=== PATIENT | male | born 1960 | race Caucasian/White ===

== ENCOUNTER 2020-10-17 15:37 | Emergency (ER) | payer OTHER ==
[~2020-10-17] VITALS: Ht 198.1 cm; Wt 143.2 kg
[~2020-10-17 15:37] MED LIST: COUMADIN 22.5 MG/TAB PO; COUMADIN 5MG5 MG/TAB PO; PERCOCET 325 MG1 TA2 PO; PERCR 7.5 PO; ROXICODONE 55 MG/TAB PO; ZOLOFT 100MG100 MG PO
[2020-10-17 16:13] LABS: BASO # 0.1 (0.0-0.2); BASO % 0.3 % (0.0-2.0); EOS # 0.1 (0.0-0.7); EOS % 0.4 % (0-4.0); GRAN # 14.4 (1.4-6.5); GRAN % 81.7 % (42.2-75.2); HEMATOCRIT 47.9 % (42.0-52.0); HEMOGLOBIN 15.1 g/dl (13.5-18.0); LYMPH % 11.4 % (20.0-51.0); MEAN CELL VOLUME 92 fl (80.0-100.0); MEAN CORPUSCULAR HEMOGLOBIN 29 pg (27.0-31.0); MEAN CORPUSCULAR HGB CONC 32 g/dl (33.0-37.0); MEAN PLATELET VOLUME 8.8 fl (7.4-10.4); MONO % 5.6 % (1.7-9.3); PLATELET COUNT 154 K/mm3 (130-400); RED BLOOD COUNT 5.21 M/mm3 (4.20-5.60); REDCELL DISTRIBUTION WIDTH-CV 13.8 % (11.5-14.5)
[2020-10-17 16:28] LABS: ALANINE AMINOTRANSFERASE 31 U/L (4-49); ALKALINE PHOSPHATASE 70 U/L (50-136); ANION GAP 17 mmol/L (7-16); AST,SGOT 36 U/L (15-37); BLOOD UREA NITROGEN 22 mg/dL (9-20); CARBON DIOXIDE 21 mmol/L (22-30); CHLORIDE 104 mmol/L (98-107); CREATININE, serum 1.92 (0.66-1.25); GLUCOSE 196 mg/dL (74-106); LIPASE 145 U/L (23-300); POTASSIUM 4.2 mmol/L (3.4-5.0); SODIUM 142 mmol/L (137-145); TOTAL PROTEIN 8.6 gm/dL (6.4-8.2)
[2020-10-17 16:34] LABS: TROPONIN-I < 0.012 ng/mL (0.000-0.035)
[2020-10-17 18:13] LABS: INR 1.2 (0.8-3.0); PROTHROMBIN TIME 13.4 SECONDS (9.7-12.8)
[2020-10-17 18:31] LABS: COLLECTION METHOD CLEAN CATCH
[2020-10-17 18:43] LABS: MUCOUS Present /lpf; PH 5 (5-8); SQUAMOUS EPITHELIAL 0-2 /hpf; URINE APPEARANCE Cloudy; URINE BACTERIA Rare /hpf; URINE BILIRUBIN Negative (NEGATIVE); URINE BLOOD 3+ (NEGATIVE); URINE COLOR Amber; URINE GLUCOSE Negative (NEGATIVE); URINE KETONE Negative (NEGATIVE); URINE LEUKOCYTE ESTERASE Negative (NEGATIVE); URINE NITRATE Negative (NEGATIVE); URINE PROTEIN(semi-quant) 2+ (NEGATIVE); URINE RBC 20-50 /hpf; URINE UROBILINOGEN Negative (NEGATIVE)
[2020-10-17 21:41] VITALS: BP 145/88; PULSE 107
== END 2020-10-17 21:41 | disposition short-term general hospital (02) ==
LOC: COL.ER 15:37
PROVIDERS: Nurse Practitioner Primary Care
DX: N17.9 Acute kidney failure, unspecified (principal); R79.1 Abnormal coagulation profile; E66.01 Morbid (severe) obesity due to excess calories; Z20.822 Contact with and (suspected) exposure to COVID-19; Z68.36 Body mass index [BMI] 36.0-36.9, adult
CPT/HCPCS: J1644; J2270; J7030